=== PATIENT | female | born 1950 | race Asian ===

== ENCOUNTER 2019-12-17 10:49 | Outpatient (CLI) | payer OTHER | END 2019-12-17 23:22 | disposition home or self-care (01) | LOC: RAD 10:49 | DX: M25.511 Pain in right shoulder (principal) ==

== ENCOUNTER 2020-09-22 11:09 | Outpatient (CLI) | payer OTHER | END 2020-09-22 22:00 | disposition home or self-care (01) | LOC: RAD 11:09 | PROVIDERS: ATTEND Nurse Practitioner Primary Care | DX: M54.5 Low back pain (principal) ==

== ENCOUNTER 2020-10-23 09:16 | Outpatient (CLI) | payer OTHER | END 2020-10-23 19:03 | disposition home or self-care (01) | LOC: RAD 09:16 | PROVIDERS: ATTEND Nurse Practitioner Primary Care | DX: J20.9 Acute bronchitis, unspecified (principal) ==

== ENCOUNTER 2021-04-12 15:13 | Outpatient (CLI) | payer OTHER | END 2021-04-12 21:06 | disposition home or self-care (01) | LOC: RAD 15:13 | PROVIDERS: ATTEND Family Medicine | DX: M25.561 Pain in right knee (principal) ==

== ENCOUNTER 2021-04-14 13:56 | Outpatient (CLI) | payer OTHER | END 2021-04-14 20:30 | disposition home or self-care (01) | LOC: MRI 13:56 | PROVIDERS: ATTEND Family Medicine | DX: M25.561 Pain in right knee (principal); M54.59 Other low back pain ==

== ENCOUNTER 2021-04-15 14:43 | Outpatient (CLI) | payer OTHER | END 2021-04-15 19:14 | disposition home or self-care (01) | LOC: CT 14:43 | PROVIDERS: ATTEND Family Medicine | DX: M54.59 Other low back pain (principal) ==

== ENCOUNTER 2021-06-08 10:49 | Outpatient (CLI) | payer OTHER | END 2021-06-08 19:00 | disposition home or self-care (01) | LOC: CT 10:49 | PROVIDERS: ATTEND Nurse Practitioner Family | DX: R10.32 Left lower quadrant pain (principal) | CPT/HCPCS: 36415; 82565; 84520; Q9963 ==

== ENCOUNTER 2021-07-26 13:25 | Observation (INO) | payer OTHER ==
[~2021-07-26] VITALS: Ht 160 cm; Wt 80.0 kg
[2021-07-26 15:04] VITALS: BP 178/91; TEMP 98.8; Ht 160 cm; Wt 80.0 kg
[2021-07-26 16:00] LABS: PLATELET COUNT 246 K/uL (152-353)
[2021-07-26 16:26] LABS: POTASSIUM 3.5 mmol/L (3.6-5.2)
[2021-07-26 16:48] LABS: PARTIAL THROMBOPLASTIN TIME 27.7 SECONDS (24.5-33.6)
[2021-07-26 20:00] VITALS: BP 165/83; TEMP 98.4
[2021-07-27] VITALS: BP 185/75; TEMP 98.2
[2021-07-27 04:00] VITALS: BP 177/72; TEMP 99.5
[2021-07-27 06:03] LABS: PLATELET COUNT 249 K/uL (152-353)
[2021-07-27 06:25] LABS: POTASSIUM 3.8 mmol/L (3.6-5.2)
[2021-07-27 08:00] VITALS: BP 179/80; TEMP 98.5
[2021-07-27] MEDS ORDERED: PANTOPRAZOLE 40MG TA PO (08:29)
[2021-07-27] MEDS ORDERED: PAXIL20 MG PO (08:30)
[2021-07-27] MEDS ORDERED: PRAVASTATIN10 MG PO (08:31)
[2021-07-27] MEDS ORDERED: DICL75TA4 PO (08:32)
[2021-07-27 12:00] VITALS: BP 166/78; TEMP 98.2
== END 2021-07-27 15:15 | disposition home or self-care (01) ==
LOC: MED/SURG 13:25
PROVIDERS: ADMIT Family Medicine; ATTEND Family Medicine
DX: R07.89 Other chest pain (principal); M79.601 Pain in right arm; R94.31 Abnormal electrocardiogram [ECG] [EKG]; I10 Essential (primary) hypertension
CPT/HCPCS: 36415; 80053; 82550; 84484; 85027; 85610; 85730; 87635; 93005; 96360; 96361; 96372; 96375; 99220; G0378; G0379; J1650; J1885; J2930; U0003

== ENCOUNTER 2021-08-11 08:45 | Outpatient (CLI) | payer OTHER ==
[~2021-08-11 08:45] MED LIST: DICL75TA4 PO; PANTOPRAZOLE 40MG TA PO; PAXIL20 MG PO; PRAVASTATIN10 MG PO
== END 2021-08-11 18:57 | disposition home or self-care (01) ==
LOC: NM 08:45
PROVIDERS: ATTEND Family Medicine
DX: R07.89 Other chest pain (principal); I10 Essential (primary) hypertension
CPT/HCPCS: A9500; J2785

== ENCOUNTER 2021-08-12 08:30 | Outpatient (CLI) | payer OTHER | END 2021-08-12 20:03 | disposition home or self-care (01) | LOC: US 08:30 | PROVIDERS: ATTEND Family Medicine | DX: R07.89 Other chest pain (principal); I10 Essential (primary) hypertension ==

== ENCOUNTER 2022-03-03 15:20 | Outpatient (CLI) | payer OTHER | END 2022-03-03 19:17 | disposition home or self-care (01) | LOC: US 15:20 | PROVIDERS: ATTEND Nurse Practitioner Family | DX: M71.21 Synovial cyst of popliteal space [Baker], right knee (principal) ==

== ENCOUNTER 2022-12-12 14:58 | Outpatient (CLI) | payer OTHER | END 2022-12-12 21:59 | disposition home or self-care (01) | LOC: RAD 14:58 | PROVIDERS: ATTEND Physician Assistant | DX: M25.561 Pain in right knee (principal) ==

== ENCOUNTER 2022-12-14 10:29 | Outpatient (CLI) | payer OTHER | END 2022-12-14 19:06 | disposition home or self-care (01) | LOC: MAMMO 10:29 | PROVIDERS: ATTEND Nurse Practitioner Family | DX: N64.4 Mastodynia (principal) | CPT/HCPCS: G0279 ==